=== PATIENT | male | born 1970 | race Caucasian/White ===

== ENCOUNTER 2016-07-06 09:46 | Day surgery (SDC) | payer MEDICARE, BC ==
[2016-07-05 13:18] VITALS: BMI 20.4
[~2016-07-06 09:46] MED LIST: LACTATED RINGERS 1,000 ML IV SCH
[2016-07-06 10:24] VITALS: RESP 16; TEMP 98.7
[2016-07-06] MEDS ORDERED: LIDOCAINE 1% 20 ML VIAL (10MG/ML) FOR IV START INTRADERMA ONE (10:38)
[2016-07-06] MEDS ORDERED: fentaNYL (PF) 50 MCG/ML 2 ML AMP ONE (11:29)
[2016-07-06] MEDS ORDERED: LIDOCAINE 1% INJ 10MG/ML (20 ML MDV) ONE (11:29)
[2016-07-06] MEDS ORDERED: PROPOFOL 10 MG/ML 20 ML VIAL IV ONE (11:29)
--- NOTE | 2016-07-06 12:05 | P.PCN ---
Date of Procedure: 07/06/16 Procedure(s) Performed: Procedure: Esophagogastroduodenoscopy and replacement of gastrostomy feeding tube. Preoperative diagnosis: Feeding tube malfunction. Postoperative diagnosis: Successful replacement of the gastrostomy feeding tube using the 20-Turkmen US endoscopy non-balloon replacement PEG tube. Preparation and sedation: Was provided by anesthesia. Brief clinical history: The patient is a 45-year-old male with history of muscular dystrophy who has required enteral nutritional support through a gastrostomy feeding tube since July 2011. His last tube was replaced December 2013. The patient is now returning because of malfunction of the tube. Procedure: With the patient in the supine position and after informed consent and adequate sedation, I tried to remove the existing non-balloon feeding tube initially with gentle traction but it did not feel that the tube will come out in this way. I therefore decided to proceed with the upper endoscopy which allowed us to capture the existing tube with the snare. Once that was done we were able to retrieve the tube by withdrawing the endoscope after it was cut close to the skin level. Following that, I placed a 20-Turkmen US endoscopy non- balloon gastrostomy feeding tube using the obturator and generous lubrication. I then advanced the endoscope back through the cricopharyngeus down the esophagus into the stomach and confirmed the correct placement of the tube. No obvious abnormalities were seen in the esophagus or stomach. Pyloric channel, duodenal bulb, post bulbar area and descending duodenum appeared normal as well.. The patient tolerated the procedure well. Plan: The patient was reassured. Discussed local care of the tube. Will keep on clear liquids for the next meal, then can advance his diet and start using the feeding tube by dinnertime. He will follow up with you as planned and would be happy to see if he has any issues in the future.
[2016-07-06 12:26] VITALS: BP 126/80; PULSE 56
== END 2016-07-06 12:42 | disposition home or self-care (01) ==
LOC: ORWHC2ENDO 09:46
DX: K94.23 Gastrostomy malfunction (principal)
CPT/HCPCS: 43246; J2001; J3010; J2704

== ENCOUNTER → 2018-08-01 | Outpatient (CLI) | payer MEDICARE, BC ==
--- NOTE | 2018-08-02 07:48 | MR ---
EXAMINATION TYPE: MR liver wo/w con DATE OF EXAM: 08/01/2018 COMPARISON: Outside abdominal ultrasound May 02, 2018. HISTORY: Abnormal findings on US done at [facility] CONTRAST: Standard multiplanar, multisequence MRI departmental protocol utilizing 6.5 mL intravenous Gadavist g adolinium contrast. Imaging is performed of the abdomen focusing on the liver. FINDINGS: Liver: Liver is overall normal in size. In the posterior segment right hepatic lobe there is oval wel l-defined 1.2 x 0.9 cm lesion axial image 24 series 301 of T2 hyperintensity and T1 hypointensity, dy namic postcontrast images show peripheral nodular enhancement with progressive central filling, imagi ng characteristics consistent with small hemangioma. There is additional 7 mm T2 hyperintense lesion anteriorly axial image 30 with progressive centripetal filling consistent with smaller hemangioma and smaller 4 mm T2 hyperintense lesion lateral segment left hepatic lobe axial image 29 series 401, wit h suspected progressive enhancement consistent with tiny hemangioma. There are 1-2 punctate thin-wall ed cysts in the right hepatic dome axial image 36 series 401 without enhancement measuring under 3 mm . There is patent portal and branching veins. There are patent hepatic veins draining into IVC. There is no suspicious intrahepatic or extrahepatic biliary dilatation. Gallbladder is felt within normal limits. Other: Lung bases are grossly clear. The spleen, pancreas, and both adrenal glands are normal in size . There is no renal mass or hydronephrosis. No suspicious small or large bowel dilatation. No abdomin al ascites. Osseous structures are intact. No greater than 1 cm abdominal adenopathy. IMPRESSION: Lesion of concern on ultrasound identified as hemangioma on MRI. There are 2 additional subcentimeter hemangiomas and tiny punctate simple thin-walled cysts on MRI not clearly identified on ultrasound.
== END | disposition home or self-care (01) ==
LOC: RADMRIMAIN 11:05
DX: D18.09 Hemangioma of other sites (principal); K76.89 Other specified diseases of liver
CPT/HCPCS: 74183; A9585

== ENCOUNTER 2019-02-13 09:48 | Day surgery (SDC) | payer MEDICARE, BC ==
[2019-02-12 12:11] VITALS: BMI 20.9
[~2019-02-13 09:48] MED LIST changes: +LIDOCAINE 1% 20 ML VIAL (10MG/ML) FOR IV START INTRADERMA PRN
[2019-02-13 10:08] VITALS: TEMP 97.3
[2019-02-13] MEDS ORDERED: fentaNYL (PF) 50 MCG/ML 2 ML AMP ONE (11:22)
[2019-02-13] MEDS ORDERED: PROPOFOL 10 MG/ML 20 ML VIAL IV ONE (11:22)
--- NOTE | 2019-02-13 12:13 | P.PCN ---
Date of Procedure: 02/13/19 Description of Procedure: Brief history: Patient is a 48-year-old female who presents for outpatient EGD with PEG tube replacement due to a broken been leaking PEG tube. Procedure performed: EGD with PEG tube replacement Preoperative diagnosis: EGD with PEG tube replacement, oropharyngeal dysphagia IV sedation by anesthesia Estimated blood loss: Minimal. Procedure: After informed consent was obtained with the patient as well as the family the patient was brought into the endoscopy unit. IV conscious sedation was administered by anesthesia under continuous monitoring. The Olympus GF 190 video endoscope was inserted into the mouth and esophagus intubated without any difficulty and was gradually advanced to the stomach and duodenum. The bulb and second part of the duodenum was visualized which appeared normal. The scope at this time was withdrawn to the stomach adequately insufflated with air, and the bumper from previously placed PEG tube was noted in the body of stomach. At this time insertion of the wire through the previously placed PEG tube was was performed. The insertion wire was then snared and the endoscope was withdrawn from the mouth. The bumper from the patient's previously placed PEG tube was then removed using a cold forceps. The insertion wire was then attached to a 20-Danish [employer] PEG tube. The insertion wire was then cold with the PEG tube through the previously created cutaneous fistula. The PEG tube was pulled until the internal bolster was sitting snugly against the gastric mucosa which was confirmed with repeat EGD. On repeat EGD the esophagus was intubated without any difficulty and the endoscope was advanced into the stomach. The internal bumper appeared to be in secure position. The visualized portions of the antrum, body, cardia and fundus of the stomach appeared normal. The esophagus was carefully examined as the scope was gradually being withdrawn and appeared normal. At this time the external bumper was placed on the PEG tube with a 4 cm serafin noted. The patient tolerated the procedure well Impression: Successful 20-Danish [employer] PEG tube replacement placement as described above. Recommendations: Findings of this examination were discussed with the patient's family. The patient can resume tube feeds and pills through the PEG tube as previously received.
[2019-02-13 12:29] VITALS: BP 111/75; PULSE 57; RESP 20
== END 2019-02-13 12:57 | disposition home or self-care (01) ==
LOC: ORWHC2ENDO 09:48
PROVIDERS: ATTEND Internal Medicine
DX: K94.23 Gastrostomy malfunction (principal); Y83.9 Surgical procedure, unspecified as the cause of abnormal reaction of the patient, or of later complication, without mention of misadventure at the time of the procedure; F17.210 Nicotine dependence, cigarettes, uncomplicated; G71.11 Myotonic muscular dystrophy; Z98.890 Other specified postprocedural states
CPT/HCPCS: 43246; J3010; J2704; B4087

== ENCOUNTER 2023-05-27 10:45 | Day surgery (SDC) | payer MEDICARE, BC ==
[~2023-05-27 10:45] MED LIST changes: +LIDOCAINE 1% (10MG/ML) FOR IV START INTRADERMA PRN; -LIDOCAINE 1% 20 ML VIAL (10MG/ML) FOR IV START INTRADERMA PRN
[2023-05-27] MEDS ORDERED: LACTATED RINGERS 1,000 ML IV ONE (11:38)
[2023-05-27 12:12] VITALS: TEMP 98.2
[2023-05-27] MEDS ORDERED: PROPOFOL 10 MG/ML 20 ML VIAL IV ONE (12:32)
[2023-05-27] MEDS ORDERED: fentaNYL (PF) 50 MCG/ML 2 ML AMP ONE (12:32)
[2023-05-27] MEDS ORDERED: LIDOCAINE 2% (PF) 20 MG/ML 5 ML VIAL ONE (12:32)
--- NOTE | 2023-05-27 12:52 | P.PCN ---
Date of Procedure: 05/27/23 Procedure(s) Performed: Brief history: Patient is a -year-old pleasant scheduled for an EGD with PEG tube replacement today. He has history of GERD Procedure performed: EGD with PEG tube replacement and biopsy Preoperative diagnosis: Oropharyngeal dysphagia secondary to muscular dystrophy IV sedation by anesthesia Procedure: After informed consent was obtained with the patient as well as the family the patient was brought into the endoscopy unit. IV conscious sedation was administered by anesthesia under continuous monitoring. The Olympus GF 160 video endoscope was inserted into the mouth and esophagus intubated without any difficulty and was gradually advanced to the stomach and duodenum. The bulb and second part of the duodenum was visualized which appeared normal. The scope at this time was withdrawn to the stomach adequately insufflated with air. The previously PEG placed PEG tube was removed without any difficulty. A guidewire was passed through the gastrostomy site which was gently pulled out a moderate lumbar the scope. A 20-Lux[place]bour[place] scientific PEG tube was passed over the guidewire and was gently advanced into the mouth and esophagus and stomach. With gentle traction the guidewire along with the PEG tube was pulled from the anterior abdominal wall until the internal bumper appeared to be in secure position. Repeat EGD was performed and the esophagus intubated without any difficulty and was advanced into the stomach. The internal bumper appeared to be in secure position. The visualized portions of the antrum body cardia and fundus of the stomach appeared normal. 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 At this time external bumper was placed on the PEG tube closer to the anterior abdominal wall at 3 cm serafin. The patient tolerated the procedure well. Impression: Successful 20-Lux[place]bour[place] [employer] PEG tube replacement as described above. 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 Recommendations: Findings of this examination were discussed with the patient's family. The PEG tube can be used for feedings today. If the biopsy results. If the biopsy results. She can have a repeat upper endoscopy in 3 years.
[2023-05-27 13:11] VITALS: PULSE 76; RESP 16
[2023-05-27 13:40] VITALS: BP 119/81
== END 2023-05-27 13:33 | disposition home or self-care (01) ==
LOC: ORWHC2ENDO 10:45
PROVIDERS: ATTEND Internal Medicine Gastroenterology
DX: K94.23 Gastrostomy malfunction (principal); K21.9 Gastro-esophageal reflux disease without esophagitis; G71.00 Muscular dystrophy, unspecified; K22.70 Barrett's esophagus without dysplasia; J44.9 Chronic obstructive pulmonary disease, unspecified; F17.210 Nicotine dependence, cigarettes, uncomplicated; Z79.899 Other long term (current) drug therapy; Z98.890 Other specified postprocedural states
CPT/HCPCS: 88305; 43239; 43246; J3010; J2704; J2001; B4087

== ENCOUNTER 2024-11-20 10:47 | Observation (INO) | payer MEDICARE, BC ==
--- NOTE | 2024-11-20 11:49 | ED ---
General Adult HPI - General Chief complaint: Recheck/Abnormal Lab/Rx Stated complaint: Tube Issue Time Seen by Provider: 11/20/24 11:03 Source: patient, family Mode of arrival: wheelchair Limitations: no limitations - History of Present Illness Initial comments: Dictation was produced using [employer] dictation software. please excuse any grammatical, word or spelling errors. Chief Complaint: 54-year-old male leaking PEG tube History of Present Illness: Patient 54-year-old male sent in from GI office for leaking PEG tube. Patient's PEG tube was placed several months ago. Apparently there was a noticed hole today near the proximal portion of the tube. PEG was initially placed May 29, 2023 The ROS documented in this emergency department record has been reviewed and confirmed by me. Those systems with pertinent positive or negative responses have been documented in the HPI. All other systems are other negative and/or noncontributory. - Related Data Home Medications Medication Instructions Recorded Confirmed Vitamin C (Unknown Dose) 1 tab PO DAILY 04/22/21 05/27/23 Allergies Allergy/AdvReac Type Severity Reaction Status Date / Time No Known Allergies Allergy Verified 05/27/23 11:46 Review of Systems ROS Statement: Those systems with pertinent positive or pertinent negative responses have been documented in the HPI. ROS Other: All systems not noted in ROS Statement are negative. Past Medical History Past Medical History: Asthma, COPD, Memory Impairment, Musculoskeletal Disorder Additional Past Medical History / Comment(s): Myotonic Dystrophy, uses a cane, has "weak muscles", difficulty swallowing, has PEG Tube, hx closed head injury with continued memory problems. History of Any Multi-Drug Resistant Organisms: None Reported Past Surgical History: Orthopedic Surgery Additional Past Surgical History / Comment(s): Jaw surgery, PEG tube, cyst removed from back X2. Past Anesthesia/Blood Transfusion Reactions: No Reported Reaction Additional Past Anesthesia/Blood Transfusion Reaction / Comment(s): Family hx unknown-pt adopted. Past Psychological History: No Psychological Hx Reported Smoking Status: Current every day smoker - Past Family History Mother History Unknown: Yes Family Medical History: Unable to Obtain Additional Family Medical History / Comment(s): ADOPTED. General Exam - General Exam Comments Initial Comments: General: Well-appearing, nontoxic, no acute distress. Head: Normocephalic, atraumatic Eyes: PERRLA, EOMI ENT: Airway patent Chest: Nonlabored breathing Skin: No visual rash, normal skin tone Neuro: Alert and oriented 3 Musculoskeletal: No gross abnormalities Limitations: no limitations Course Vital Signs 11/20/24 11/20/24 10:59 13:14 Temperature 98.2 F 98.1 F Pulse Rate 59 L 66 Respiratory 20 16 Rate Blood Pressure 119/77 135/91 O2 Sat by Pulse 99 98 Oximetry Medical Decision Making - Medical Decision Making Was pt. sent in by a medical professional or institution (, PA, BRICK HANDLER, urgent care, hospital, or skilled nursing...) When possible be specific @ -No Did you speak to anyone other than the patient for history (EMS, parent, family, police, friend...)? What history was obtained from this source @ -No Did you review nursing and triage notes (agree or disagree)? Why? @ -I reviewed and agree with nursing and triage notes Were old charts reviewed (outside hosp., previous admission, EMS record, old EKG, old radiological studies, urgent care reports/EKG's, skilled nursing records)? Report findings @ -No old charts were reviewed Differential Diagnosis (chest pain, altered mental status, abdominal pain women, abdominal pain men, vaginal bleeding, musculoskeletal, weakness, fever, dyspnea, syncope, headache, dizziness, GI bleed, back pain, seizure, CVA, palpatations, mental health)? @ -PEG tube malfunction, PEG tube rupture, PEG tube malpositioning EKG interpreted by me (3pts min.). @ -None done X-rays interpreted by me (1pt min.). @ -Pegogram shows adequate placement CT interpreted by me (1pt min.). @ -None done U/S interpreted by me (1pt. min.). @ -None done What testing was considered but not performed or refused? (CT, X-rays, U/S, labs)? Why? @ -None What meds were considered but not given or refused? Why? @ -None Was smoking cessation discussed for >3mins.? @ -No Were there social determinants of health that impacted care today? How? (Homelessness, low income, unemployed, alcoholism, drug addiction, transportation, low edu. Level, literacy, decrease access to med. care, nursing home, rehab)? @ -No Was there de-escalation of care discussed even if they declined (Discuss DNR or withdrawal of care, Hospice)? DNR status @ -No What co-morbidities impacted this encounter? (DM, HTN, Smoking, COPD, CAD, Cancer, CVA, ARF, Chemo, Hep., AIDS, mental health diagnosis, sleep apnea, morbid obesity)? @ -None Was patient admitted / discharged? Hospital course, mention meds given and route, prescriptions, significant lab abnormalities, going to OR and other pertinent info. @ -54-year-old male presents to the ER for PEG tube replacement. Vital signs stable. Patient has no other concerns. Attempt was made to remove PEG tube. Traction was placed and tube tore. Proximal end of tube was short and was secured with mosquito forceps. Given small area to grasp it did not feel safe to proceed given that there is high chance that tube may fall into the stomach requiring endoscopic removal. Case was discussed with GI Dr. nAgela recommend request patient be admitted observation for PEG tube replacement Did you discuss the management of the patient with other professionals (professionals i.e. , PA, BRICK HANDLER, lab, RT, psych nurse, social media marketer, desk interviewer, teacher, hospital chief financial officer, renal case manager)? Give summary @ -No Was critical care preformed (if so, how long)? @ -No Undiagnosed new problem with uncertain prognosis? @ -No Drug Therapy requiring intensive monitoring for toxicity (Heparin, Nitro, Insulin, Cardizem)? @ -No Were any procedures done? @ -No Diagnosis/symptom? Acute, or Chronic, or Acute on Chronic? Uncomplicated (without systemic symptoms) or Complicated (systemic symptoms)? @ -PEG tube rupture Side effects of treatment? @ -No Exacerbation, Progression, or Severe Exacerbation? @ -No Poses a threat to life or bodily function? How? (Chest pain, [place], [place], pneumonia, PE, COPD, DKA, ARF, appy, cholecystitis, CVA, Diverticulitis, Homicidal, Suicidal, threat to staff... and all critical care pts) @ -yes Disposition Clinical Impression: PEG tube malfunction Disposition: ADMITTED IP TO THIS HOSP Condition: Fair Is patient prescribed a controlled substance at d/c from ED?: No Referrals: Jeffry Castañeda MD [Primary Care Provider] - 1-2 days Decision Time: 13:10
[2024-11-20] MEDS: MORPHINE SULFATE 4 MG/ML SYRINGE IM STA (12:47)
[2024-11-20] MEDS ORDERED: NALOXONE 0.4 MG/ML 1 ML VIAL IV PRN (13:02)
[2024-11-20] MEDS ORDERED: MORPHINE SULFATE 4 MG/ML SYRINGE IV PRN (13:02)
[2024-11-20] MEDS: SODIUM CHLORIDE 0.9% 1,000 ML IV SCH (13:31)
--- NOTE | 2024-11-20 15:25 | XR ---
EXAMINATION TYPE: XR chest 1V portable DATE OF EXAM: 11/20/2024 3:19 PM COMPARISON: Chest radiographs from 08/02/2012 TECHNIQUE: XR chest 1V portable Portable AP radiograph of the chest. CLINICAL INDICATION:Male, 54 years old with history of chf; FINDINGS: Lungs/Pleura: There is no evidence of pleural effusion, focal consolidation, or pneumothorax. Biapic al pleural thickening. Pulmonary vascularity: Unremarkable. Heart/mediastinum: Cardiomediastinal silhouette is unremarkable. Musculoskeletal: No acute osseous pathology. IMPRESSION: No acute cardiopulmonary disease/process. [facility], , 11/20/2024 3:23 PM
[2024-11-20 15:32] LABS: Basophils # (A) 0.06 10*3/uL (0.00-0.10); Basophils % (A) 0.9 %; Eosinophils # (A) 0.32 10*3/uL (0.04-0.35); Eosinophils % (A) 4.8 %; HCT 43.4 % (39.6-50.0); HGB 14.3 g/dL (13.0-17.0); Immature Platelet Fraction 22.8 % (1.1-6.1); Lymphocytes # (A) 1.25 10*3/uL (0.90-5.00); Lymphocytes % (A) 18.7 %; MCH 32.6 pg (27.0-32.0); MCHC 32.9 g/dL (32.0-37.0); MCV 98.9 fL (80.0-97.0); Monocytes # (A) 0.50 10*3/uL (0.20-1.00); Monocytes % (A) 7.5 %; Neutrophils # (A) 4.54 10*3/uL (1.80-7.70); Neutrophils % (A) 68.0 %; Platelet Count 106 10*3/uL (140-440); RBC 4.39 10*6/uL (4.40-5.60); RDW 12.7 % (11.5-14.5); WBC 6.68 10*3/uL (4.50-10.00)
[2024-11-20 15:55] LABS: African American GFR (CKD) >90 (>60 ml/min/1.73 sqM); Anion Gap 5 mmol/L; Blood Urea Nitrogen 11 mg/dL (9-20); Calcium 9.8 mg/dL (8.4-10.2); Carbon Dioxide 31 mmol/L (22-30); Chloride 106 mmol/L (98-107); Glucose 102 mg/dL (74-99); Non-African American GFR(CKD) >90 (>60 ml/min/1.73 sqM); Potassium 3.8 mmol/L (3.5-5.1); Sodium 142 mmol/L (137-145)
--- NOTE | 2024-11-20 16:08 | HP ---
HISTORY AND PHYSICAL CHIEF COMPLAINT: PEG tube malfunction. HISTORY OF PRESENT ILLNESS: This is a 54-year-old gentleman with a past medical history of multiple medical problems including oropharyngeal dysphagia secondary to muscular dystrophy, had a PEG tube placement. The patient was taken to [facility] today, because of the leaking of the PEG tube. The PEG tube cannot be replaced in the ER by the ER physician, so Dr. Jorgensen was consulted and the patient will be admitted for further evaluation and treatment. There is no history of any fever, rigors, or chills at this time. PAST MEDICAL HISTORY: History of muscular dystrophy, COPD, asthma, rest of the chart and rest of the history is also reviewed. HOME MEDICATIONS: None. ALLERGIES: None. FAMILY HISTORY: The patient is adopted. SOCIAL HISTORY: History of smoking THC. REVIEW OF SYSTEMS: A 14-point review of systems negative except as mentioned earlier. PHYSICAL EXAMINATION: VITAL SIGNS: Pulse is 66, blood pressure 135/91, and respirations 16. HEENT: Conjunctivae normal. NECK: No JVD. CARDIOVASCULAR: S1, S2 muffled. RESPIRATIONS: Breath sounds diminished at the bases. No rhonchi. No crackles. ABDOMEN: Soft. PEG tube inserted. LEGS: No edema. NERVOUS SYSTEMS: Diffusely weak, wasting and features of myotonic dystrophy present. Nervous system as mentioned. LABORATORY DATA: Not available. ASSESSMENT: 1. Status post PEG tube leaking and malfunction for PEG tube replacement. 2. Oropharyngeal dysphagia secondary to muscular dystrophy. 3. Asthma. 4. Chronic obstructive pulmonary disease. 5. History of memory impairment. 6. Multiple complex medical issues. 7. History of nicotine dependence. RECOMMENDATIONS: This 54-year-old gentleman presented with multiple complex medical issues. We will monitor the patient closely. Continue the current management and continue symptomatic pain management. Proton pump inhibitors. DVT prophylaxis. Consult Dr. Jorgensen for possible PEG tube placement. We will continue to monitor. Guarded prognosis. Further recommendations to follow. See orders for details. I would also obtain a baseline labs also. Continue with IV fluids. MMODL / IJN: [id number] /
--- NOTE | 2024-11-20 16:13 | P.CONS ---
History of Present Illness - Reason for Consult Consult date: 11/20/24 Malfunctioning PEG tube Requesting physician: Mil Navarrete - Chief Complaint Malfunctioning PEG tube - History of Present Illness This is a 54-year-old male patient with a past medical history including muscular dystrophy, memory impairment secondary from closed head injury, with difficulty swallowing who has a PEG tube that was placed in May of this year. Apparently patient had leaking around the tube and came into the emergency department for further evaluation. The emergency room physician was looking at the tube to possibly replace and the tube broke in half. Gastroenterology was consulted for PEG tube replacement. Last EGD and PEG tube replacement 05/27/2023 with EGD findings of Bryant's esophagus and placement of 20 [place] [employer] PEG tube replacement. Patient denies any abdominal pain, nausea or vomiting. Patient and family at the bed side state patient can eat food just not anything real dry. Review of Systems REVIEW OF SYSTEMS: CARDIOPULMONARY: No chest pain or shortness of breath. Gastrointestinal: No abdominal pain. No nausea or vomiting. No hematemesis, coffee-ground emesis. No rectal bleeding, or melena. Leaking/broken PEG tube. Difficulty swallowing dry foods. GENITOURINARY: No dysuria or hematuria. MUSCULOSKELETAL: Reports normal range of motion. SKIN: No rashes. No jaundice. ENDOCRINE: No chills, fevers. No excessive weight gain or loss. No polydipsia or polyuria. PSYCHIATRIC: Unremarkable. NEUROLOGY: No change in mental status. Denies dizziness, headache. ENT: Vision unremarkable. CONSTITUTIONAL: No recent weight loss. No fever, chills, night sweats. Past Medical History Past Medical History: Asthma, COPD, Memory Impairment, Musculoskeletal Disorder Additional Past Medical History / Comment(s): Myotonic Dystrophy, uses a cane, has "weak muscles", difficulty swallowing, has PEG Tube, hx closed head injury with continued memory problems. History of Any Multi-Drug Resistant Organisms: None Reported Past Surgical History: Orthopedic Surgery Additional Past Surgical History / Comment(s): Jaw surgery, PEG tube, cyst re moved from back X2. Past Anesthesia/Blood Transfusion Reactions: No Reported Reaction Additional Past Anesthesia/Blood Transfusion Reaction / Comm: Family hx unknown- pt adopted. Past Psychological History: No Psychological Hx Reported Smoking Status: Current every day smoker - Past Family History Mother History Unknown: Yes Family Medical History: Unable to Obtain Additional Family Medical History / Comment(s): ADOPTED. Medications and Allergies Home Medications Medication Instructions Recorded Confirmed Type No Known Home Medications 11/20/24 11/20/24 History Allergies Allergy/AdvReac Type Severity Reaction Status Date / Time No Known Allergies Allergy Verified 11/20/24 14:15 Physical Exam Vitals: Vital Signs Temp Pulse Resp BP Pulse Ox 11/20/24 13:14 98.1 F 66 16 135/91 98 11/20/24 10:59 98.2 F 59 L 20 119/77 99 Intake and Output 11/20/24 11/20/24 11/20/24 06:59 14:59 22:59 Other: Weight 63.503 kg General appearance: The patient is alert, oriented, appears in no acute distres s. HET: Head is normocephalic and atraumatic. Conjunctiva pink. Sclera anicteric. Neck: Supple without lymphadenopathy. Trachea midline. Heart: Regular. Lungs: Equal expansion, normal respiratory effort. Abdomen: Soft, nontender, PEG tube in place but broken/snapped off, nondistended. Skin: No rashes. No jaundice. Extremities: Normal skin color and turgor. No pedal edema. Neurological: No focal deficits. Alert and oriented x3. Results CBC & Chem 7: 11/20/24 15:01 11/20/24 15:01 Labs: Abnormal Lab Results - Last 24 Hours (Table) 11/20/24 11/20/24 Range/Units 15:01 15:01 RBC 4.39 L (4.40-5.60) 10*6/uL MCV 98.9 H (80.0-97.0) fL MCH 32.6 H (27.0-32.0) pg Plt Count 106 L (140-440) 10*3/uL MPV 14.7 H (9.5-12.2) fL Immature Plt Fraction 22.8 H (1.1-6.1) % Carbon Dioxide 31 H (22-30) mmol/L Creatinine 0.58 L (0.66-1.25) mg/dL Glucose 102 H (74-99) mg/dL Assessment and Plan (1) PEG tube malfunction Narrative/Plan: 54-year-old with longstanding history of PEG tube needed for history of muscular dystrophy last replaced in May of this year and underwent upper endoscopy with findings of Bryant's esophagus with a history of GERD. Patient was having leaking emergency room attending try to address the PEG tube however it had snapped in half. Will replace PEG tube tomorrow morning. Current Visit: Yes Status: Acute Code(s): K94.23 - GASTROSTOMY MALFUNCTION SNOMED Code(s): 383831549 Plan: 1. Patient may have chopped diet, n.p.o. after midnight 2. Will plan for upper endoscopy with PEG tube replacement tomorrow 3. Rest of medical management per primary medical team Thank you for this consultation, we will continue to follow. Dr. Heidi Jorgensen I agree with the dictator's note, documented as a scribe by Mary Lou Ruiz.
[2024-11-20] MEDS: PANTOPRAZOLE 40 MG/10 ML VIAL IVP SCH (22:07)
[2024-11-21] MEDS ORDERED: ONDANSETRON 4 MG/2 ML VIAL ONE (07:08)
[2024-11-21] MEDS ORDERED: PROPOFOL 10 MG/ML 20 ML VIAL IV ONE (07:08)
[2024-11-21] MEDS ORDERED: LIDOCAINE 1% INJ 10MG/ML (20 ML MDV) ONE (07:08)
[2024-11-21] MEDS: IV FLUID CONTINUATION 800 ML IV ONE (07:09)
--- NOTE | 2024-11-21 07:36 | P.PCN ---
Date of Procedure: 11/21/24 Procedure(s) Performed: Brief history: Patient is a 54-year-old pleasant scheduled for an EGD with PEG tube replacement today. He has history of muscular dystrophy and has PEG tube in place for several years. Last PEG tube replacement was in May 2023. He came to the emergency room yesterday because of leakage of the PEG tube as the ER physician was attempting to pull the PEG tube out it broke closer to the skin and could not be removed. And hemostat was placed and he was admitted for observation. He is scheduled for an upper endoscopy for PEG tube replacement today. Procedure performed: EGD with PEG tube replacement Preoperative diagnosis: Malfunction of the PEG tube. IV sedation by anesthesia Procedure: After informed consent was obtained with the patient as well as the family the patient was brought into the endoscopy unit. IV conscious sedation was administered by anesthesia under continuous monitoring. The Olympus GF 160 video endoscope was inserted into the mouth and esophagus intubated without any difficulty and was gradually advanced to the stomach and duodenum. The bulb and second part of the duodenum was visualized which appeared normal. The scope at this time was withdrawn to the stomach adequately insufflated with air. At this time I attempted to pull the PEG tube from the anterior abdominal wall but not successful. Hence a PEG tube was pushed into the stomach cavity. Through the existing gastrostomy site trocar and cannula was passed. Guidewire was passed through the cannula into the stomach cavity which was held by the snare that was passed through the scope. The guidewire along with the scope was gently withdrawn from the stomach esophagus out of the mouth. A 20-[employer] [place] [employer] PEG tube was passed over the guidewire and was gently advanced into the mouth and esophagus and stomach. With gentle traction the guidewire along with the PEG tube was pulled from the anterior abdominal wall until the internal bumper appeared to be in secure position. Repeat EGD was performed and the esophagus intubated without any difficulty and was advanced into the stomach. The internal bumper appeared to be in secure position. The visualized portions of the antrum body cardia and fundus of the stomach appeared normal. The esophagus was carefully examined as the scope was gradually being withdrawn which appeared normal. 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 At this time I did a biopsy from the distal esophagus and there was a brisk oozing identified and subsequently stopped. No further biopsies were performed. The previously post PEG tube into the stomach cavity was held with a snare and was gently pulled out of the mouth with some difficulty. At this time external bumper was placed on the PEG tube closer to the anterior abdominal wall at 3 cm serafin. The patient tolerated the procedure well. 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 Recommendations: Findings of this examination were discussed with the patients family. The patient will be started on tube feeds now. Resume oral intake also. He will be discharged to the floor and patient can be discharged home today.
[2024-11-21 08:00] VITALS: TEMP 97.8
--- NOTE | 2024-11-21 08:18 | XR ---
EXAMINATION TYPE: XR chest 1V portable DATE OF EXAM: 11/21/2024 8:11 AM COMPARISON: Chest radiographs from 11/20/2024 TECHNIQUE: XR chest 1V portable Portable AP radiograph of the chest. CLINICAL INDICATION:Male, 54 years old with history of possible aspiration.; FINDINGS: Lungs/Pleura: Elevation of the right hemidiaphragm. No pneumothorax. No pleural effusion. Development of right basilar patchy airspace opacities. Biapical pleural-parenchymal scarring. Pulmonary vascularity: Unremarkable. Heart/mediastinum: Cardiomediastinal silhouette is unremarkable. Musculoskeletal: No acute osseous pathology. IMPRESSION: Development of right basilar patchy airspace opacities which may represent atelectasis versus infiltr ates possibly related to reported aspiration. [facility], , 11/21/2024 8:16 AM
[2024-11-21] MEDS: BUDESONIDE 1 MG/2 ML NEBU INHALATION STA (08:39)
[2024-11-21 08:59] VITALS: RESP 20
[2024-11-21 09:57] VITALS: BP 116/73; PULSE 53
[2024-11-21 10:39] LABS: Basophils # (A) 0.05 10*3/uL (0.00-0.10); Basophils % (A) 0.5 %; Eosinophils # (A) 0.18 10*3/uL (0.04-0.35); Eosinophils % (A) 2.0 %; HCT 41.1 % (39.6-50.0); HGB 13.5 g/dL (13.0-17.0); Immature Platelet Fraction 23.6 % (1.1-6.1); Lymphocytes # (A) 0.94 10*3/uL (0.90-5.00); Lymphocytes % (A) 10.2 %; MCH 32.7 pg (27.0-32.0); MCHC 32.8 g/dL (32.0-37.0); MCV 99.5 fL (80.0-97.0); Monocytes # (A) 0.59 10*3/uL (0.20-1.00); Monocytes % (A) 6.4 %; Neutrophils # (A) 7.40 10*3/uL (1.80-7.70); Neutrophils % (A) 80.6 %; RBC 4.13 10*6/uL (4.40-5.60); RDW 12.8 % (11.5-14.5); WBC 9.19 10*3/uL (4.50-10.00)
[2024-11-21 10:53] LABS: ALT 34 U/L (4-49); AST 54 U/L (17-59); African American GFR (CKD) >90 (>60 ml/min/1.73 sqM); Albumin 3.5 g/dL (3.5-5.0); Alkaline Phosphatase 117 U/L (38-126); Anion Gap 8 mmol/L; Blood Urea Nitrogen 8 mg/dL (9-20); Calcium 9.1 mg/dL (8.4-10.2); Carbon Dioxide 24 mmol/L (22-30); Chloride 109 mmol/L (98-107); Glucose 100 mg/dL (74-99); Non-African American GFR(CKD) >90 (>60 ml/min/1.73 sqM); Potassium 3.6 mmol/L (3.5-5.1); Sodium 141 mmol/L (137-145); Total Protein 6.0 g/dL (6.3-8.2)
[2024-11-21 11:34] LABS: Platelet Count 96 10*3/uL (140-440)
== END 2024-11-21 11:54 | disposition home or self-care (01) ==
LOC: EC 10:47 → 6NMEDSUR 13:02 → 1SOBS 18:21
PROVIDERS: ADMIT Hospitalist; ATTEND Hospitalist
DX: K94.23 Gastrostomy malfunction (principal); G71.11 Myotonic muscular dystrophy; K22.70 Barrett's esophagus without dysplasia; J44.89 Other specified chronic obstructive pulmonary disease; K21.9 Gastro-esophageal reflux disease without esophagitis; R41.3 Other amnesia; F17.210 Nicotine dependence, cigarettes, uncomplicated; Z87.828 Personal history of other (healed) physical injury and trauma; Z98.890 Other specified postprocedural states
CPT/HCPCS: 96360; 96361; 96372; 99284; 88305; 80053; 80048; 85025 ×2; 71045 ×2; 43239; 43246; G0378 ×3; J2270; J2405; J2003; J2704; B4087